=== PATIENT | female | born 1955 | race Caucasian/White ===

== ENCOUNTER → 2024-03-19 08:55 | Outpatient (BNVA) | payer MEDICARE, SELFPAY | PROVIDERS: PCP Specialist/Technologist Athletic Trainer; Referring Provider Specialist/Technologist Athletic Trainer; Visit Provider Student in an Organized Health Care Education/Training Program | DX: M17.12 Unilateral primary osteoarthritis, left knee (principal) | CPT/HCPCS: 99203 ==

== ENCOUNTER 2024-04-26 03:46 | Outpatient (CLI) | payer MEDICARE, SELFPAY ==
[2024-04-26 10:00] LABS: HCT 39.9 % (36.0-46.0); HGB 12.6 g/dL (11.2-15.7); MCH 29.2 pg (27.0-33.0); MCHC 31.6 % (32.0-36.0); MCV 92 fL (80-95); MPV 10.4 fL (8.0-11.0); Platelet Count 314 10^3/uL (130-400); RBC 4.32 10^6/uL (3.93-5.22); RDW 13.5 % (11.7-14.6); RDW-SD 46.7 fL; WBC 7.37 10^3/uL (4.4-10.8)
[2024-04-26 10:40] LABS: Anion Gap 7.7 mmol/L (3-11); BUN 16 mg/dL (7-18); CO2 29.3 mmol/L (21.0-32.0); CREATININE 0.8 mg/dL (0.55-1.02); Calcium 10.4 mg/dL (8.5-10.1); Chloride 108 mmol/L (98-107); Estimated GFR 80.21 (mL/min/1.73m2); Glucose 94 mg/dL (74-106); Potassium 4.2 mmol/L (3.5-5.1); Sodium 145 mmol/L (136-145)
== END 2024-04-26 03:47 | disposition home or self-care (01) ==
PROVIDERS: PCP Specialist/Technologist Athletic Trainer; Visit Provider Student in an Organized Health Care Education/Training Program
DX: Z01.818 Encounter for other preprocedural examination (principal); M17.12 Unilateral primary osteoarthritis, left knee
CPT/HCPCS: 36415; 80048; 85027; 99024

== ENCOUNTER 2024-04-26 10:20 | Outpatient (CLI) | payer MEDICARE, SELFPAY ==
--- NOTE | 2024-04-26 08:45 | DI.RAD_ITS ---
Exam(s) XR STANDING ALIGNMENT EXAM: XR STANDING ALIGNMENT CLINICAL HISTORY: OA LEFT KNEE. TECHNIQUE: 2D digital imaging was performed. COMPARISON: CR,RF XR KNEE 3V LT from 09/14/2023 FINDINGS: 3 views Again noted is a medial hemiarthroplasty in the right knee which appears stable without fracture or l oosening these images. The lateral compartment of the right knee is maintained. It again exhibits c hondrocalcinosis. Opposite-left knee again reveals [id number] narrowing of the medial compartment and normal height o f the lateral compartment. Hips remain unremarkable as do the ankles. Bone density normal. No osseous lesions. IMPRESSION: As above. Minimal if any significant change when compared to prior images of September 2023. DATA REPOSITORY: RADIATION DOSE DELIVERED:
== END 2024-04-26 10:21 | disposition home or self-care (01) ==
LOC: DIORS 11:27
PROVIDERS: PCP Specialist/Technologist Athletic Trainer; Visit Provider Physician Assistant
DX: M17.12 Unilateral primary osteoarthritis, left knee (principal); Z01.818 Encounter for other preprocedural examination
CPT/HCPCS: 36415; 80048; 85027; 99024; 77073

== ENCOUNTER 2024-05-09 08:25 | Day surgery (SDC) | payer MEDICARE, SELFPAY ==
[2024-05-09] VITALS (38 sets, daily range): BP systolic 92–172; BP diastolic 40–96; PULSE 49–91; RESP 7–20; TEMP 36–36.5; O2SAT 92–100; BMI 45.0
--- NOTE | 2024-05-09 07:18 | PDOC.DSDIS_ITS ---
Date of service: 05/09/24 Discharge Plan Disposition Patient Disposition: Home Condition: Good Discharge Details Reason For Visit: L TKR Attending Provider: Armaan Klein Primary Care Provider: Jacques Collazo Home Meds and New Rx's Prescriptions: New celecoxib 200 mg capsule 200 mg PO BID Qty: 60 0RF aspirin 81 mg tablet,delayed release (DR/EC) 81 mg PO BID Qty: 60 0RF acetaminophen 500 mg tablet 1,000 mg PO TID Qty: 90 3RF pantoprazole 40 mg tablet,delayed release (DR/EC) 40 mg PO DAILY Qty: 30 0RF dexamethasone 4 mg tablet 4 mg PO DAILY Qty: 2 0RF gabapentin 300 mg capsule 300 mg PO QHS Qty: 14 0RF oxycodone 5 mg tablet 5 mg PO Q4H MDD 6 tabs PRN (Reason: pain) Qty: 20 0RF Continued diclofenac sodium [Aleve (diclofenac)] 1 % gel 2 g topical QID Rx Instructions: apply to single elbow, wrist or hand; for hand includes palm/fingers/back of hand lisinopril 40 mg tablet 40 mg PO DAILY cholecalciferol (vitamin D3) 50 mcg (2,000 unit) capsule 50 mcg PO DAILY docosahexaenoic acid-epa Capsule 1 cap PO DAILY Tumersaid [phone] mg tablet 1 tab PO DAILY Discharge Instructions Additional Instructions: Total Knee Discharge Instructions Activity: The most important activity is to walk and to work on gentle motion (both flexion and extension). You should try to take short walks a few times a day. It is important that when resting you work on keeping the knee straight. Avoid putting a pillow behind the knee as this will encourage flexion. Work on range of motion exercises as provided by Physical Therapy. - Start outpatient physical therapy within 2 weeks. - You should wear the SURAJ hose on both legs for 2 weeks. You may remove these at night. You may also use any compression sock in place of the SURAJ hose. - Utilize [employer] to review exercises, see videos on exercises and obtain basic information pertaining to your surgery and your recovery. Dressing: Remove the Jose wrap by 2 days after your surgery and put on the SURAJ stocking given to you from the hospital. Keep the surgical dressing (underneath the JOSE wrap) in place for at least one week. After the first week it may be removed and replaced with light gauze and tape or nothing. The wound and dressing may get wet after 3 days but avoid soaking the dressing or otherwise it will need to be changed. Many people prefer covering the dressing with cling wrap (saran wrap) to minimize it from getting soaked. If it gets wet, just pat dry. If it starts to peel off then it will need to be changed. Medications: - You should take Tylenol and anti-inflammatory Celebrex as your primary pain control medications. If the Celebrex is too expensive or not covered, please call the office for another alternative (Advil/Ibuprofen or Naproxen/Aleve) - You have been prescribed a stronger pain medication Oxycodone for breakthrough pain, take as needed as prescribed. - You have also been prescribed a stomach acid reduction agent Pantoprozole to help reduce stomach acid and reflux. - You have been prescribed Gabapentin to take at night for restlessness and nerve pain. - You will be taking Aspirin 81mg twice a day for DVT prevention unless instructed otherwise. - You have also been prescribed Decadron to take to control post-operative nausea and pain. You will start this tomorrow. - If you have constipation you should take Colace or Miralax (both over -the-counter). It takes most people 3-4 days to have a bowel movement. Follow-up: 2 weeks If you have any acute concerns or questions, please do not hesitate to contact the office at [phone]. You may contact Dr. Klein with any questions after hours through the hospital at [phone] or on his cell phone at [phone]. Referrals: Armaan Klein MD [ [facility] STAFF PHYSICIAN] - Equipment/Supplies: Walker Activity:: Activity as Tolerated Shower/Bathe:: 72 hours Diet:: As Tolerated Discharge Orders Discharge Orders: Discharge Order (Routine); Ordered 05/09/24 Ordered By: Micheal Bacon DS: Diagnosis Discharge Diagnosis (1) Osteoarthritis of left knee: Status: Acute
[2024-05-09] MEDS: Celecoxib 200 MG CAP 400 MG PO (09:05)
[2024-05-09] MEDS: Acetaminophen 500 MG TAB 1000 MG PO ×2 (09:05→16:29)
[2024-05-09] MEDS: Gabapentin 300 MG CAP PO (09:05)
[2024-05-09] MEDS: Lactated Ringers 1,000 ML 80 ML IV (09:21)
--- NOTE | 2024-05-09 09:39 | W.ANESPRE ---
General Info Date of Service Date Performed: 05/09/24 Height: 4 ft 9 in Weight: 94.4 kg Body Mass Index (BMI): 45.0 Surgical Procedure: Operation Date: 05/09/24 10:55 Proposed Procedure Side Surgeon p Knee Total Arthroplasty, Cementless CR Left Armaan Klein MD Meds Allergies and Home Medications Allergies Allergy/AdvReac Type Severity Reaction Status Date / Time No Known Allergies Allergy Verified 05/09/24 08:45 Home Medication ?Medication ?Instructions ?Recorded cholecalciferol (vitamin D3) 50 50 mcg PO DAILY 01/17/24 mcg (2,000 unit) capsule diclofenac sodium 1 % topical gel 2 g topical QID 01/17/24 (Aleve (diclofenac)) lisinopril 40 mg tablet 40 mg PO DAILY 01/17/24 docosahexaenoic acid (dha)-epa 1 cap PO DAILY 05/07/24 capsule tyzdcdgc-clfomr-ogw-qxb-qew-apuu-horse 1 tab PO DAILY 05/07/24 100 mg-100 mg-100 mg-125 mg tab (Tumersaid) acetaminophen 500 mg tablet 1,000 mg (2 x 500 mg) PO TID #90 05/09/24 tabs aspirin 81 mg tablet,delayed 81 mg PO BID #60 tabs 05/09/24 release celecoxib 200 mg capsule 200 mg PO BID #60 caps 05/09/24 dexamethasone 4 mg tablet 4 mg PO DAILY #2 tabs 05/09/24 gabapentin 300 mg capsule 300 mg PO QHS #14 caps 05/09/24 oxycodone 5 mg tablet 5 mg PO Q4H PRN pain #20 tabs 05/09/24 pantoprazole 40 mg tablet,delayed 40 mg PO DAILY #30 tabs 05/09/24 release Current Visit Medications: Current Medications Generic Name Dose Route Start Last Admin Trade Name Freq PRN Reason Stop Dose Admin Acetaminophen 1,000 mg 05/09/24 06:00 Acetaminophen 500 Mg Tab PO 05/09/24 23:59 PREOP ELVIS Acetaminophen 1,000 mg 05/09/24 07:14 05/09/24 09:05 Acetaminophen 500 Mg Tab PO 06/08/24 07:13 1,000 mg TID PRN PRN Administration Analgesia Celecoxib 400 mg 05/09/24 06:00 05/09/24 09:05 Celecoxib 200 Mg Cap PO 05/09/24 23:59 400 mg PREOP ELVIS Administration Docusate Sodium 100 mg 05/09/24 07:14 Docusate Sodium 100 Mg Cap PO 06/08/24 07:13 BID PRN PRN Constipation Gabapentin 300 mg 05/09/24 06:00 05/09/24 09:05 Gabapentin 300 Mg Cap PO 05/09/24 23:59 300 mg PREOP ELVIS Administration Ringer's Solution 1,000 mls @ 80 mls/hr 05/09/24 06:00 05/09/24 09:21 IV 05/09/24 23:59 80 mls/hr INFUSION ELVIS Administration Cefazolin Sodium/Dextrose 2 gm in 50 mls @ 100 mls/hr 05/09/24 06:00 Ancef Duplex IVPB 05/09/24 23:59 PREOP ELVIS Tranexamic Acid/Sodium Chloride 1,000 mg in 100 mls @ 600 mls/hr 05/09/24 06:00 IVPB 05/09/24 23:59 PREOP ELVIS IV Miscellaneous Supplies 1 each 05/09/24 06:00 Iv Access IV 05/09/24 23:59 DIRECTED ELVIS Ondansetron HCl 4 mg 05/09/24 07:14 Ondansetron 4 Mg/2 Ml Vial IVP 06/08/24 07:13 Q6H PRN PRN Nausea Oxycodone HCl 0 mg 05/09/24 07:14 Oxycodone 5 Mg Tab PO 06/08/24 07:13 Q3H PRN PRN Pain Polyethylene Glycol 17 gm 05/09/24 07:14 Polyethylene Glycol 3350 17 Gm Packet PO 06/08/24 07:13 BID PRN PRN Constipation Sodium Chloride 0 ml 05/09/24 06:00 Normal Saline Flush 10 Ml Syr IV 05/09/24 23:59 PRN PRN Sodium Chloride 0 ml 05/09/24 06:00 Normal Saline 10 Ml Vial IJ 05/09/24 23:59 DIRECTED PRN Sterile Water 0 ml 05/09/24 06:00 Water,Injection,Sterile 10 Ml Vial IJ 05/09/24 23:59 DIRECTED PRN PFSH Active Problems Active Problems: Problem Status Onset Code Osteopenia Acute M85.80 Osteoarthritis of left knee Acute M17.12 Morbid obesity Acute E66.01 Hypertensive disorder Chronic I10 Hyperparathyroidism Acute E21.3 Surgical History Surgical History History of total right knee replacement (~04/2011) History of cholecystectomy (~04/2022) History of colonoscopy (10/2020) Tobacco Smoking/Tobacco Use Status: Never Alcohol Alcohol Intake: current Alcohol intake frequency: holidays/special occasions only Substance Use Substance use: Never Substance use type: does not use Vital Signs and Lab Results Vital Signs Most Recent Vital Signs in EMR: Most Recent Vital Signs Temp Pulse Resp BP Pulse Ox 36.5 C 86 13 172/96 H 98 05/09/24 08:51 05/09/24 08:51 05/09/24 08:51 05/09/24 08:51 05/09/24 08:51 Lab Results Blood Type / Crossmatch: No Data to Display Complete Blood Count: White Blood Count 7.37 10^3/uL (4.4-10.8) 04/26/24 09:50 Red Blood Count 4.32 10^6/uL (3.93-5.22) 04/26/24 09:50 Hemoglobin 12.6 g/dL (11.2-15.7) 04/26/24 09:50 Hematocrit 39.9 % (36.0-46.0) 04/26/24 09:50 Platelet Count 314 10^3/uL (130-400) 04/26/24 09:50 Complete Metabolic Panel: Sodium 145 mmol/L (136-145) 04/26/24 09:50 Potassium 4.2 mmol/L (3.5-5.1) 04/26/24 09:50 Chloride 108 mmol/L (98-107) H 04/26/24 09:50 Carbon Dioxide 29.3 mmol/L (21.0-32.0) 04/26/24 09:50 BUN 16 mg/dL (7-18) 04/26/24 09:50 Creatinine 0.8 mg/dL (0.55-1.02) 04/26/24 09:50 Est GFR (CKD-EPI 2020) 80.21 (mL/min/1.73m2) 04/26/24 09:50 Calcium 10.4 mg/dL (8.5-10.1) H 04/26/24 09:50 Glucose 94 mg/dL (74-106) 04/26/24 09:50 Liver Function Panel: No Data to Display Coagulation Panel: No Data to Display Cardiac Panel: No Data to Display Arterial Blood Gas: No Data to Display Venous Blood Gas: No Data to Display Pancreas Panel: No Data to Display Thyroid Panel: No Data to Display Infectious Disease: No Data to Display Blood Cultures: No Data to Display Toxicology Panel: No Data to Display Anesthesia Assessment and Plan Anesthesia History Personal History: No History of Anesthesia Complications Family History: No Family History of Anesthesia Complications Exercise Tolerance Exercise Tolerance: Metabolic Equivalents>4 Pertinent Negatives Pertinent Negatives: No Symptoms of GERD Cardiac & Pulmonary Exam Cardiac Exam: Normal S1/S2 Heart Sounds Pulmonary Exam: Clear Bilateral Breath Sounds Implantable Cardiac Device Does patient have a Pacemaker or an ICD?: No Airway Exam Known Difficult Airway: No Mallampati Class: 2 Mouth Opening: Normal (> 3cm) Thyromental Distance: Greater than 3 cm Neck Range of Motion: Full ROM Neck Circumference: Normal Teeth Condition: Removable Dentures/Plates Upper and Removable Dentures/Plates Lower ASA Classification ASA Score: ASA 3 Emergency Case?: No NPO Status NPO Status: NPO Clears >2 hours, Solids >8 hours Anesthesia Plan Resuscitation Status: Full Code Anesthesia Technique: Spinal Anesthesia Airway Planned: Natural Airway Pain Management: Surgeon and patient request nerve block Monitors Used: Standard Monitors
--- NOTE | 2024-05-09 10:45 | W.ANESNERVE ---
Nerve Block Single Injection Procedure Date and Time Date Performed: 05/09/24 Procedure Start: 10:29 Location Where Procedure Performed Procedure Location: Day Surgery Unit Reason Performed: Postoperative Analgesia Requesting Provider: Armaan Klein Timeout Performed Timeout Performed: Yes Monitoring Used ECG, Blood Pressure, SpO2, ETCO2 and See EMR for corresponding vital signs Sterility Sterility: Hand Hygiene, Surgical Cap, Surgical Mask, Sterile Gloves, Eye Protection and Chlorhexidine Sedation Given During Procedure Sedation Given (Indicate Dose Given): Versed IV Dose:: 2mg IVP Patient Mental Status Patient Mental Status: Sedate with meaningful communication Nerve Block 1st Nerve Block: Laterality: Left Block Type: Adductor Canal Ultrasound Image Saved?: Yes Needle / Catheter Used: 120mm SonoPlex II Local Anesthetic Bolus (Indicate Dose Given): Lidocaine used for local infiltration of skin and Ropivacaine 0.5% Dose:: 0.5%/25cc (125mg) Additives (Indicate Dose Given): Epinephrine to make 1:200,000 (5mcg/ml) Dose:: 125mcg and Decadron Dose:: 10mg PF Ultrasound: Sterile probe cover and gel used Nerve Stimulator: Not Used Paresthesia: None Procedure Tolerated: No Complications and Patient tolerated well Procedure Outcome: Successful Performed By: Rio Rae
[2024-05-09] MEDS: ceFAZolin 2 GM/50 ML BAG IVPB (11:35)
[2024-05-09] MEDS: TRANEXAMIC ACID/SOD. CHL. 1,000 MG/100 ML BAG 600 MG IVPB (11:49)
--- NOTE | 2024-05-09 12:55 | W.PM.OP ---
Operative Note Operative Note PRE-OP DIAGNOSIS: Left Knee Arthritis POST-OP DIAGNOSIS: same PROCEDURE: Left Total Knee Replacement SURGEON: Armaan Klein GENETIC SUPERVISOR: Kathy Bacon ANESTHESIA TYPE: Spinal Refer to Anesthesia Record PATHOLOGY: none sent TOURNIQUET TIME: 0 COMPLICATIONS: None Patient was transported to: PACU Patient's condition: stable Implants: 1. Depuy Attune Cementless Cruciate Retaining Femoral Component, Size 3 2. Depuy Attune Cementless Fixed Bearing Tibial Component, Size 3 3. Depuy Attune 3x8mm CR/FB Poly Indications: I have seen Kendy in clinic for symptoms of knee arthritis, confirmed with radiographic findings. She has exhausted nonoperative methods and was having significant limitations in daily function and desired better function and less pain. I discussed the technical details of a knee replacement. I explained the risks of the procedure to include, but not limited to, bleeding, infection, pain, stiffness, fracture, damage to nerves and vessels, damage to muscles and tendons, loosening, need for repeat procedure, blood clot and cardiopulmonary demise. Despite these risks, Kendy elected to proceed. Findings: There was significant signs of arthritis primarily within the medial compartment of the knee. Procedure Description: Kendy was greeted in the preoperative holding area where the correct side was identified and marked. The consent was reviewed with the patient and signed. The history and physical was updated. All questions were answered. Preoperative medications were administered: Acetaminophen 1000mg, Celebrex 400mg, and Gabapentin 300mg. An adductor canal block was then administered by the anesthesia team in the DSU. Body was taken back to the operating room. A spinal anesthestic was then attempted but unsuccessful. Thus, she was converted to a general anesthetic. The patient was placed into the supine position on the operating room table. Posts were placed for positioning during the procedure. All bony prominences were well padded. Prophylactic antibiotics in the form of Cefazolin were administered. 1g of Tranxemic Acid was given intravenously within 30 minutes of incision. The left leg was then prepped with Chloraprep and draped in a standard fashion with impervious stockinette. A second prep with Chloraprep was performed prior to application of Iodine impregnated skin protection. A timeout to confirm correct identity, side and site, procedure, allergies, anesthesia, and medical concerns was performed. With the knee in some flexion, a midline incision was made overlying the knee. Full thickness skin flaps were raised once the extensor mechanism was encountered. These were raised medially and laterally. Any bleeding was controlled with electrocautery. Once the extensor mechanism was fully exposed, a medial parapatellar arthrotomy was performed in a flexed position. All bleeding from the arthrotomy and the geniculate arteries was coagulated. A medial subperiosteal peel was performed with electrocautery to the midcoronal plane. The fat pad was removed while keeping the patellar tendon protected. The anterior distal femur synovium was removed for later visualization. The ACL and PCL were resected and the anterior horn of the lateral meniscus was transected. The knee was then flexed with the patella everted. Large osteophytes from the tibia were removed. Large osteophytes from the femur were removed. These osteophytes were limited to the medial compartment. Using a step drill, and based on preoperative templating, the femoral canal was entered. This was done with a step drill without any difficulty. The intramedullary distal femoral cut guide was inserted, set to a 5 degree valgus cut and 9mm cut thickness. The distal femoral cut guide was then held in position and pinned. With the soft tissues protected, the distal cut was performed. This was passed over a few times to ensure a planar cut. I then turned attention to the tibia. The extramedullary guide was placed onto the leg. The distal aspect was slid medial to adjust for position of center of ankle and stay in line with shaft of the tibia. Approximately 3-5 degrees of posterior slope was kept in the proximal cutting guide. The center of the guide was aligned with the PCL. The stylus was used to assess cut thickness. The medial side, most involved side, was set for a 6mm cut. This was then held in position and pinned into place with 2 additional pins and a cross pin for stability. The medial and lateral collateral ligaments were protected and the cut was performed. With this completed, it was assessed and noted to be of appropriate dimensions. The guide was removed. A spacer block was inserted and the knee was brought into extension. The 7mm spacer block provided full extension, without hyperextension and with stability of both the medial and lateral collateral ligaments was assessed. The pins from the femur and the tibia were then removed. The distal femur was then sized. The anterior stylus was placed onto the lateral ridge of the anterior femur. This indicated a size 3 femur. The external rotation of the guide was adjusted to 3 degrees to match the epicondylar axis, perpendicular to Romulo?s line. The 4-in-1 cutting guide was the placed. The posterior medial femur cut was evaluated and appeared of good thickness. The spacer block was inserted underneath the cutting guide and stability was confirmed in 90 degrees of flexion. An jeanette wing was used to confirm appropriate position of the anterior cut to avoid notching. This cutting guide was ensured to be flush on the cut surface and then pinned into place with headed pins. While protecting the soft tissues, quad tendon, and collateral ligaments, the anterior and posterior cuts were performed with a saw. The central two pins were removed and the posterior and anterior chamfers were cut next. The notch-cutting guide was placed. This was pinned to lateralize the femoral component as much as possible while keeping it flush on the cut surface. This was then pinned into position. A reciprocating saw was used to make the notch cut. A rasp smoothed the cut surfaces. The medial and lateral menisci were removed. A trial femoral component was then inserted, impacted down to the cut surfaces, and the lug holes were drilled. A provisional trial tibial component was placed and the knee was brought through range of motion. There was noted to be excellent extension and flexion. There was no significant instability. The patella was tracking without thumbs. A size 8mm polyethylene component provided the best range of motion and stability with less than 2mm gapping with medial and lateral stress and full extension without significant hyperextension. The tibial cut surface was fully exposed. The tibia was then sized as a 3. The tibia had been previously marked during trialing to correspond to the center of the tibial component to help with rotation. The trial was aligned to this kathy, approximately rotated to the medial 1/3rd of the tibial tubercle. The trial was pinned into place. The tibia was prepared with a reamer and a keel punch and lug holes. The trial components were removed. The final components were opened on the back table. The periosteal and capsular tissues, especially posteriorly, around the knee were then systematically injected with a periarticular cocktail consisting of 246mg of Ropivacaine, 0.5mg of Epinephrine, 0.08mg of Clonidine, and 30mg of Ketorolac, diluted to 100cc. Then, the cementless knee components were placed. Starting with the tibial component, the tibia was subluxed anteriorly and the lug holes of the component were lined up. The tibia was then impacted with an impactor and mallet until the tibial component was in contact with the tibia. The final polyethylene component was inserted. Then, the femoral component was inserted. The lug holes were aligned and the component was impacted into position. The knee was irrigated with Surgiphor Betadine solution. This was allowed to sit in the knee for 3 minutes and then it was irrigated out with saline. After the cement had finally cured, approximately 15min, the clamp was removed from the patella and the knee was taken through range of motion. The patella was tracking with a no-thumbs technique. The capsule was then reapproximated with a No. 1 Vicryl at multiple locations. The capsule was finally closed with a No. 2 Stratafix, barbed suture. The second dosing of 1g TXA was started. Deep tissues were then reapproximated with 0 Vicryl and 2-0 Vicryl. The skin was closed with a running 3-0 Monocryl in a subcuticular fashion. This was reinforced with skin glue. A Mepilex silver dressing was applied along with a [id number]-fj-[id number] UZMA wrap. A CryoCuff was applied. Kendy was transferred to the hospital bed without difficulty an suffering no apparent complication. Kendy has a good prognosis. Physical therapy will start today and without restrictions, weight-bearing as tolerated. Aspirin 81mg BID will be used for DVT prophylaxis. Date of Procedure: 05/09/24
[2024-05-09] MEDS: Normal Saline Flush 10 ML SYR IV ×2 (14:32→15:01)
[2024-05-09] MEDS: Ondansetron 4 MG/2 ML VIAL IVP (15:01)
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
--- NOTE | 2024-05-09 16:41 | PT.INIE ---
PT Notes Visit Reasons: L TKR Physical Therapy Day Surgery Initial Evaluation Date: 05/09/2024 Referring Doctor: SILVIO Romero PT Orders: PT CONSULT: S/P Ortho surgery Precautions: WBAT on the left LE with AD. Patient Profile/Admitting Diagnosis: Kendy is a 68-year-old female with degenerative joint disease of the left knee and is status post left total knee arthroplasty on postoperative day 0. PMHX: Surgical History (Updated 01/17/24 @ 09:02 by Jeremiah Smith RN) History of total right knee replacement (~04/2011) History of cholecystectomy (~04/2022) History of colonoscopy (10/2020) Social History/Home Situation: Lives with in a private home with 2 steps to enter with 1 rail. Modified independent with use of single-point cane indoors and outdoors. Equipment Owned/DME: FWW of inadequate height for patient Subjective: Patient reported to?3/10 pain in the left knee that subsided with mobility performance. Denied headache, chest pain, and lightheadedness throughout session. Did report being drowsy and fatigued but was able to complete today's session activities. Objective: General Observation: Jose wraps to left LE. TEDS to R leg and foot Mental Status: Mildly drowsy but was able to complete today's assessment. Pain: As above ROM: Right Lower Extremity: Hip flexion WFL. Hip abduction WFL. Knee flexion WFL. Ankle dorsiflexion WFL. Ankle plantarflexion WFL. Left Lower Extremity: Hip flexion WFL. Hip abduction WFL. Knee flexion 0 to 100 degrees. Ankle dorsiflexion WFL. Ankle plantarflexion WFL. Strength: Right Lower Extremity: Hip flexors 5/5. Hip abductors 5/5. Knee flexors 5/5. Knee extensors 5/5. Ankle dorsiflexors 5/5. Ankle plantarflexors 5/5. Left Lower Extremity:Hip flexors 4-/5. Hip abductors 4-/5. Knee flexors 3-/5. Knee extensors 4-/5. Ankle dorsiflexors 5/5. Ankle plantarflexors 5/5. Sensation: Intact as to pain and light pressure in bilateral lower extremities Bed Mobility/Transfers: Minimal cueing provided for use of B hands as needed for support, movement sequence, AD management, and posture to reduce fall risk and minimize pain report Sit to stand contact-guard assist with FWW Stand to sit standby assist with FWW Bed to chair standby assist with FWW Gait: Facilitated safe and correct performance of level surface ambulation covering a distance of 100 feet with step to heel-toe gait pattern requiring standby assist and minimal verbal cueing for correct limb movement sequence, weight distribution onto walker, AD management, and posture to minimize pain reported reduce fall risk. Stairs: Guided patient with safe and correct negotiation of 3 x 4 inch steps and 2 x 6 inch steps while holding onto one rail and holding onto a single-point cane on the other side with step to gait pattern and contact-guard assist with minimal verbal cueing provided for limb movement sequence, hand placement, AD management, and posture to minimize pain report and reduce fall risk. Balance: Static Sitting: Normal Dynamic Sitting: Normal Static Standing: Fair Dynamic Standing: Fair Special Tests: Mobility Limitations Standardized Measure [facility] AM-PAC 6 clicks Basic Mobility Inpatient Short Form: Raw Score: 22 CMS Score: 21 percent deficit Informed Consent/Education: Patient instructed in purpose of PT consult. Packet containing TKA exercise protocol has been given to patient. Education and training on initial set of exercises that can be done at home have been completed with patient. Trained patient with correct performance of exercises below to maximize motor control, joint flexibility, soft tissue extensibility of the [] knee musculature: Access Code: [email or web address] URL: [email or web address] Date: 05/09/2024 Prepared by: Carmenza Alfonso Exercises - Supine Quad Set - 1 x daily - 7 x weekly - 1 sets - 10 reps - 5 hold - Supine Heel Slide - 1 x daily - 7 x weekly - 1 sets - 10 reps - 5 hold - Supine Ankle Pumps - 1 x daily - 7 x weekly - 1 sets - 10 reps - 5 hold - Small Range Straight Leg Raise - 1 x daily - 7 x weekly - 1 sets - 10 reps - 5 hold - Seated March - 1 x daily - 7 x weekly - 1 sets - 10 reps - 5 hold Assessment: Patient requires the use of a use of a size front wheeled walker to adequately provide support and optimize posture during all mobility ADL performance to reduce fall risk and maximize dependence. Patient presents with clinical signs and symptoms consistent with current/admitting diagnoses that have resulted to mobility limitations, gait instability, generalized weakness, and impairment of motor control as demonstrated by the following impairment level findings: 1. Decreased strength to left knee major muscle groups 2. Impaired standing balance 3. Limitation of joint range of motion in left knee Impairments are contributing to the following functional limitations: 1. Inability to safely ambulate without assistive device 2. Increase completion time for mobility ADL performance 3. Increased fall risk Patient is assessed as a 90020 moderate complexity based on the following: History: 68-year-old female with impairment level findings, functional limitations, and past medical history as indicated above Examination: Demonstrable impairment in strength, balance, and mobility level with underlying impairments and functional limitations as documented above Presentation: Evolving Decision Makin moderate complexity Goals: N/A. PT evaluation and 1-2 treatment sessions only for functional mobility training using recommended AD and for HEP instruction. Plan of Care/Treatment Plan: N/A. PT evaluation and 1-2 treatment session only for functional mobility training using recommended AD and for HEP instruction. DISCHARGE RECOMMENDATIONS: Home when medically cleared by orthopedic surgeon. Recommend outpatient PT services in order to optimize functional mobility outcomes and facilitate return to independent community ambulation without an assistive device. TREATMENT CODE/TIME: [id number] x 24 minutes for 1 unit (16: 41?17: 05). Thank you for the opportunity to participate in the care of this patient. Carmenza Alfonso PT, DPT, CLT [facility] [place], [place]
--- NOTE | 2024-05-09 17:02 | W.ANESPOSTOP ---
Postoperative Evaluation Date, Time and Location Date Performed: 05/09/24 Time Performed: 17:02 Patient Location: Day Surgery Unit Vital Signs Most Recent Imported Vital Signs: Most Recent Vital Signs Temp Pulse Resp BP Pulse Ox 36.1 C L 68 15 121/54 L 96 05/09/24 15:40 05/09/24 15:40 05/09/24 15:40 05/09/24 15:40 05/09/24 15:40 Pain Score Most Recent Pain Score: Most Recent Pain Score Pain Level 0 05/09/24 15:40 Assessment Mental Status: Awake (Alert & Oriented to Patient Baseline) Airway and Respiratory Function: Patent airway with normal (patient baseline) respiratory exam Cardiovascular Function: Hemodynamically Stable Hydration Status: Adequately Hydrated Nausea & Vomiting: No Nausea or Vomiting Pain: Pt. Denies Any Pain Peripheral Nerve Block: Patient did not receive a nerve block
== END 2024-05-09 17:40 | disposition home or self-care (01) ==
LOC: SUR 08:25
PROVIDERS: PCP Specialist/Technologist Athletic Trainer; Visit Provider Student in an Organized Health Care Education/Training Program
PROC: (CPT 27447; principal; 2024-05-09 10:45)
DX: M17.12 Unilateral primary osteoarthritis, left knee (principal); G89.18 Other acute postprocedural pain; M25.562 Pain in left knee; E66.01 Morbid (severe) obesity due to excess calories; Z68.42 Body mass index [BMI] 45.0-49.9, adult; E21.3 Hyperparathyroidism, unspecified; I10 Essential (primary) hypertension
CPT/HCPCS: 27447; 64447; 97162; C1776; J0171; J0690; J1100; J1171; J1790; J2003; J2250; J2401; J2405; J2704; J3475

== ENCOUNTER 2024-05-21 10:48 | Outpatient (CLI) | payer MEDICARE, SELFPAY ==
--- NOTE | 2024-05-21 08:45 | DI.RAD_ITS ---
Exam(s) XR KNEE LT 1V XR STANDING ALIGNMENT EXAM: XR STANDING ALIGNMENT and XR knee LT 1 V CLINICAL HISTORY: 1ST POST OP S/P L TKA. TECHNIQUE: 2D digital imaging was performed. Five images were obtained. COMPARISON: CR,RF XR KNEE 3V LT from 09/14/2023 CR XR STANDING ALIGNMENT from 04/26/2024 FINDINGS: BONES: There is a left convex lumbar scoliosis. Degenerative changes are seen in the lower lumbar sp ine. There is a question of a compression deformity involving L2. Please correlate with any prior e xaminations. There is again seen a prior unilateral right knee arthroplasty. There are degenerative changes seen in the lateral femoral tibial joint of the right knee. There is also chondrocalcinosis seen laterally. In the left knee, there has been interval placement of a total knee arthroplasty. The orthopedic hardware appears in good position. The ankles are well maintained.There is no signifi cant leg length discrepancy. SOFT TISSUE: Normal. IMPRESSION: 1. Interval placement of a left total knee arthroplasty. 2. Old unilateral right knee arthroplasty and degenerative changes seen in the lateral femoral tibial joint. DATA REPOSITORY: RADIATION DOSE DELIVERED:
== END 2024-05-21 10:49 | disposition home or self-care (01) ==
LOC: DIORS 10:50
PROVIDERS: PCP Specialist/Technologist Athletic Trainer; Referring Provider Specialist/Technologist Athletic Trainer; Visit Provider Student in an Organized Health Care Education/Training Program
DX: Z96.652 Presence of left artificial knee joint (principal); Z47.1 Aftercare following joint replacement surgery
CPT/HCPCS: 99024; 73560; 77073

== ENCOUNTER → 2024-06-18 11:13 | Outpatient (BNVA) | payer MEDICARE, SELFPAY | PROVIDERS: PCP Specialist/Technologist Athletic Trainer; Visit Provider Student in an Organized Health Care Education/Training Program | DX: Z01.818 Encounter for other preprocedural examination (principal); Z96.652 Presence of left artificial knee joint | CPT/HCPCS: 99024 ==

== ENCOUNTER → 2024-07-30 10:49 | Outpatient (BNVA) | payer MEDICARE, SELFPAY | PROVIDERS: PCP Specialist/Technologist Athletic Trainer; Referring Provider Specialist/Technologist Athletic Trainer | DX: Z47.1 Aftercare following joint replacement surgery (principal); Z96.652 Presence of left artificial knee joint | CPT/HCPCS: 99024 ==

== ENCOUNTER 2024-11-21 02:15 | Outpatient (CLI) | payer MEDICARE, SELFPAY ==
--- NOTE | 2024-11-21 07:30 | DI.RAD_ITS ---
Exam(s) XR FOOT RT COMPLETE EXAM: XR FOOT RT COMPLETE CLINICAL HISTORY: Right foot pain,[id number]. TECHNIQUE: 2D digital imaging was performed. COMPARISON: No exams were available for comparison FINDINGS: 3 views No evidence of fracture or diastasis of the Lisfranc joint. Mild degenerative changes in the great toe metatarsophalangeal joint. No significant inferior calcaneal spur. There is posterior enthesophyte evident on the posterior calcaneus Achilles insertion site. The actual Achilles tendon appears deficient at the calcaneus level. There is generalized osteopenia. No lytic lesions evident. No erosions. IMPRESSION: There is deficiency of the soft tissue shadow of the Achilles tendon at its insertional aspect. Correlation with any clinical signs of Achilles tendon pathology recommended. DATA REPOSITORY: RADIATION DOSE DELIVERED:
== END 2024-11-21 02:35 ==
PROVIDERS: PCP Specialist/Technologist Athletic Trainer; Visit Provider Podiatrist
DX: M79.671 Pain in right foot (principal); M76.61 Achilles tendinitis, right leg
CPT/HCPCS: 29580; 29850; 73630

== ENCOUNTER → 2024-12-10 09:46 | Outpatient (BNVA) | payer MEDICARE, SELFPAY | PROVIDERS: PCP Specialist/Technologist Athletic Trainer; Referring Provider Specialist/Technologist Athletic Trainer; Visit Provider Podiatrist | DX: M25.571 Pain in right ankle and joints of right foot (principal); M76.61 Achilles tendinitis, right leg; M76.71 Peroneal tendinitis, right leg; S86.011A Strain of right Achilles tendon, initial encounter; X50.0XXA Overexertion from strenuous movement or load, initial encounter | CPT/HCPCS: 99213 ==

== ENCOUNTER → 2025-01-22 08:08 | Outpatient (BNVA) | payer MEDICARE, SELFPAY | PROVIDERS: PCP Specialist/Technologist Athletic Trainer; Referring Provider Specialist/Technologist Athletic Trainer; Visit Provider Podiatrist | DX: M76.71 Peroneal tendinitis, right leg (principal); M25.871 Other specified joint disorders, right ankle and foot; M76.61 Achilles tendinitis, right leg; S86.011A Strain of right Achilles tendon, initial encounter; M25.571 Pain in right ankle and joints of right foot; W22.8XXA Striking against or struck by other objects, initial encounter | CPT/HCPCS: 99213 ==

== ENCOUNTER → 2025-02-21 08:57 | Outpatient (BNVA) | payer MEDICARE, SELFPAY | PROVIDERS: PCP Specialist/Technologist Athletic Trainer; Referring Provider Specialist/Technologist Athletic Trainer; Visit Provider Podiatrist | DX: M25.571 Pain in right ankle and joints of right foot (principal); M76.71 Peroneal tendinitis, right leg; M25.871 Other specified joint disorders, right ankle and foot; M76.61 Achilles tendinitis, right leg; S86.011D Strain of right Achilles tendon, subsequent encounter; X58.XXXD Exposure to other specified factors, subsequent encounter | CPT/HCPCS: 99213 ==